=== PATIENT | male | born 1980 | race Caucasian/White ===

== ENCOUNTER 2017-07-19 14:00 | Outpatient (CLI) | payer BC | END 2017-07-19 14:01 | disposition home or self-care (01) | LOC: BICRAD 14:00 | PROVIDERS: ATTEND Internal Medicine | DX: M54.5 Low back pain (principal); M54.6 Pain in thoracic spine; Q76.49 Other congenital malformations of spine, not associated with scoliosis | CPT/HCPCS: 72070; 72100 ==